=== PATIENT | female | born 1980 | race African-American/Black ===

== ENCOUNTER 2024-03-22 07:48 | Day surgery (SDC) | payer BC ==
[2024-03-16 16:30] VITALS: BMI 29.0
[2024-03-22 09:13] VITALS: RESP 18; TEMP 98
[2024-03-22 09:31] VITALS: BP 120/84; PULSE 75
== END 2024-03-22 09:48 | disposition home or self-care (01) ==
LOC: FASU-ENDO 07:48
PROVIDERS: ATTEND Internal Medicine Gastroenterology
PROC: 0DJD8ZZ Inspection of Lower Intestinal Tract, Via Natural or Artificial Opening Endoscopic (ICD-10-PCS; principal; 2024-03-22 08:55)
DX: Z12.11 Encounter for screening for malignant neoplasm of colon (principal)
CPT/HCPCS: 81025